=== PATIENT | male | born 1995 | race Caucasian/White ===

== ENCOUNTER 2019-04-20 16:23 | Emergency (ER) | payer OTHER, SELFPAY ==
[2019-04-20 16:24] VITALS: BP 144/83; PULSE 101; RESP 16; TEMP 36.2; O2SAT 98; BMI 21.6
--- NOTE | 2019-04-20 16:41 | CT_ITS ---
STUDY: CT SOFT TISSUE NECK WITH CONTRAST REASON FOR EXAM: Male, 23 years old. Fluid in jaw RADIATION DOSAGE (If Supplied By Facility): CTDIvol = ( 16.88 ) mGy, DLP = ( 455.10 ) mGycm TECHNIQUE: The patient was scanned in a multi-detector CT scanner. High resolution transaxial imaging was performed following intravenous administration of 100CC IV Isovue 300. Sagittal and coronal images were reconstructed. Individualized dose optimization techniques were used for this CT. COMPARISON: None. FINDINGS: Normal bilateral parotid glands. Normal bilateral copper flotation operator spaces. Normal bilateral parapharyngeal spaces. Normal bilateral carotid spaces. Normal bilateral sublingual and submandibular glands and spaces. Normal visualized nasopharynx. Normal retropharyngeal space. Normal perivertebral space. Normal visualized bilateral faucial tonsils. The visualized tongue, tongue base and oropharynx are normal. The visualized cervical lymph nodes (levels I-) are within normal size limits, and maintain normal morphology. There is no demonstrated solid or cystic mass lesion. There is no abnormal contrast enhancement. Normal epiglottis, bilateral vallecula and hypopharynx. The pre-epiglottic and paraglottic adipose spaces are normal. Normal visualized bilateral piriform sinuses, aryepiglottic folds, vocal cords, and arytenoid-cricoid articulations. Normal subglottic trachea. Normal bilateral lobes of the thyroid gland. Normal visualized pulmonary apices. Normal visualized paranasal sinuses. Normal visualized cervical spine. There is a nonexpansile cystic focus of the anterior mandible measuring 3.2 x 0[address]/Soft Tissue Neck WITH Contrast IMPRESSION: Nonexpansile cystic focus of the anterior mandible measuring 3.2 x 0.8 x 2.0 cm. This may represent some type of odontogenic cyst. Electronically Signed: Anthony Arita MD at 17:40 EDT , Service support ,
--- NOTE | 2019-04-20 16:44 | ED.VISSUMM ---
- ER Visit Summary Date of Service: 04/20/19 Chief Complaint: Jaw pain and swelling History of Present Illness: The patient is a 23 M who presents with jaw pain and swelling that has been getting worse over the past 6 days. Patient describes the pain is sharp. Patient states he saw his dentist who prescribed [place] and amoxicillin. Patient was then referred to an oral surgeon. Patient saw the oral surgeon yesterday. Patient states he was able to drain a large amount of purulent drainage from his jaw. Patient states the oral surgeon recommended getting a CT scan to evaluate for swelling of his jaw. Patient states the pain has improved after the drainage was expressed. Patient states his pain also improves when he sleeps. Patient states the pain is worse when he eats. Patient denies any hot or cold sensitivity. Patient admits to subjective chills but denies any fevers. Patient denies any difficulty swallowing. Physical Examination: Vital signs are stable. Patient is afebrile. Patient is in no acute distress. Oral mucosa is pink and moist. Oropharynx is clear. Airway is patent. There is some gingival edema over the right lower lateral incisor. There is no active drainage. There is no fluctuance noted. There is tenderness to percussion over the lateral incisor and canine teeth. There is no sublingual edema or erythema. There is some tenderness in the sublingual area however. Neck is supple. Trachea is midline. There is some mild anterior cervical lymphadenopathy noted. Heart was regular rate and rhythm. Lungs are clear and equal bilaterally. Cranial nerves II through XII are intact. There are no focal motor or sensory deficits noted. Test Results: CBC and basic metabolic profile were obtained and were within normal limits. CT scan of the soft tissue neck was obtained with contrast. There is a small cyst of the anterior and mandible. There is no abscess formation. There is no Dane angina noted. Emergency Department Course and Treatment: Patient was given IV fluids. Patient was instructed to continue his antibiotics as prescribed until gone. Patient was instructed to follow-up with his oral surgeon in 3 to 5 days. Patient understood and was agreeable with the plan. All questions were answered. Disposition: Discharge home Impression: Dental abscess This note was generated with [employer] dictation software. It may contain incorrect words, spelling, and punctuation that were not noted in review of the chart prior to signing ED Disposition - Plan for ED Patient: Disposition: Home or Assisted Living Diagnosis: Dental abscess Instructions: ED Abscess Dental Referrals: NOT,DEFINED [NON-STAFF] - Additional Instructions: Continue your antibiotics as prescribed. Follow-up with your oral surgeon in 3 to 5 days.
[2019-04-20] MEDS: 0.9% Normal Saline 1,000 ML 1000 ML IV (16:55)
[2019-04-20 17:15] LABS: Anion Gap 5 (5-15); BUN 9 mg/dL (7-18); BUN/Creat Ratio 10.7 RATIO (10-20); Chloride 106 mmol/L (98-107); Creatinine, Serum 0.84 mg/dL (0.70-1.30); EST Glomerular Filtration Rate 120 mL/min (>60); Est Glom Filt Rate - Afr Amer 145 mL/min (>60); Estimated Creatinine Clearance 115.05 ml/min; Glucose 113 mg/dL (74-106); Potassium 3.6 mmol/L (3.5-5.1); Sodium Level 139 mmol/L (136-145)
[2019-04-20 17:16] LABS: Absolute Lymphocyte Count 2.82 X10^3/ul (0.83-4.51); Absolute Neutrophil Count 4.9 X10^3/uL (2.0-7.7); Basophil# 0.03 X10^3/uL; Basophil% 0.4 % (0-1); Eosinophil# 0.16 X10^3/uL; Eosinophils% 1.9 % (0-5); Hematocrit 43.7 % (40-54); Hemoglobin 14.6 g/dl (13.0-16.5); Lymphocyte # 2.82 X10^3/ul (4.0); Lymphocyte % 33.3 % (19-41); Mean Corp Hgb Conc 33.4 g/gl (32-36); Mean Corpuscular Hgb 29.7 pg (27.0-32.0); Mean Platelet Vol. 11.4 fl (6.2-12.0); Monocyte# 0.52 X10^3/uL; Monocyte% 6.1 % (0-10); Neutrophil # 4.91 X10^3/uL (2.7-7.7); Neutrophil % 58.1 % (47-70); Platelet Count 233 K/mm3 (150-450); RBC Distribution Width CV 13.6 % (11.6-14.6); RBC Distribution Width SD 43.6 fl (35.1-43.9); Red Blood Count 4.91 M/mm3 (4.6-6.2); White Blood Count 8.5 K/mm3 (4.4-11.0)
[2019-04-20 17:23] LABS: POSITIVE COUNT NO; POSITIVE DIFFERENTIAL NO; POSITIVE MORPHOLOGY NO
== END 2019-04-20 18:56 | disposition home or self-care (01) ==
PROVIDERS: Emergency Provider Emergency Medicine
DX: K04.7 Periapical abscess without sinus (principal); F17.210 Nicotine dependence, cigarettes, uncomplicated
CPT/HCPCS: 70491; 80048; 85025; 96360; 99283; J7030; Q9967; A4216